=== PATIENT | female | born 1980 | race Two or more races ===

== ENCOUNTER 2021-03-22 16:26 | Emergency (ER) | payer OTHER ==
[~2021-03-22] VITALS: Ht 172.7 cm; Wt 94.3 kg
[2021-03-22 19:30] VITALS: BP 118/70
== END 2021-03-22 19:43 | disposition home or self-care (01) ==
LOC: ER 16:26
DX: G50.0 Trigeminal neuralgia (principal); R51.9 Headache, unspecified; E11.9 Type 2 diabetes mellitus without complications; Z98.890 Other specified postprocedural states
CPT/HCPCS: 70450